=== PATIENT | male | born 1975 | race African-American/Black ===

== ENCOUNTER 2023-07-17 07:50 | Outpatient (CLI) | payer BC | END 2023-07-17 07:51 | disposition home or self-care (01) | LOC: CSHCT 07:50 | PROVIDERS: ATTEND Neurological Surgery | DX: M43.16 Spondylolisthesis, lumbar region (principal); M47.816 Spondylosis without myelopathy or radiculopathy, lumbar region; N13.30 Unspecified hydronephrosis; N20.0 Calculus of kidney | CPT/HCPCS: 72131 ==

== ENCOUNTER 2024-07-01 11:32 | Outpatient (CLI) | payer BC ==
[2024-07-01 12:42] LABS: #Basophils 0.05 10x3/uL (0.0-0.2); #Eosinophils 0.25 10x3/uL (0.0-0.5); #Monocytes 0.69 10x3/uL (0.0-1.1); %Basophils 0.6 % (0.0-2.0); %Eosinophils 3.2 % (0.0-6.0); %Lymphocytes 27.7 % (18.0-47.0); %Monocytes 8.7 % (0.0-10.0); %Neutrophils 59.4 % (40.0-75.0); Hematocrit 45.9 % (38.8-50.0); Hemoglobin 14.8 g/dL (13.5-17.5); Mean Corpuscular HGB CONC 32.2 g/dL (32.0-36.0); Mean Corpuscular Hemoglobin 28.8 pg (27.0-33.0); Mean Corpuscular Volume 89.5 fL (81.2-95.1); Mean Platelet Volume 9.3 fL (7.4-10.4); Platelet Count 260 10x3/uL (150-450); RBC Distribution Width 14.6 % (11.5-14.5); Red Blood Cell (RBC) Count 5.13 10x6/uL (4.32-5.72); White Blood Cell (WBC) Count 7.9 10x3/uL (3.5-10.5)
[2024-07-01 13:13] LABS: ALT (SGPT) 35 U/L (8-55); AST (SGOT) 28 U/L (5-34); Albumin 4.1 g/dL (3.5-5.0); Alkaline Phosphatase 87 U/L (40-110); Anion Gap 11 mmol/L (10-20); BUN (Urea Nitrogen) 11 mg/dL (8.9-20.6); Bilirubin, Direct 0.3 mg/dL (0.1-0.3); Bilirubin, Total 0.6 mg/dL (0.2-1.2); Calc. Creatinine Clearance 0 mL/min (70-130); Calcium 10.3 mg/dL (7.8-10.44); Carbon Dioxide 30 mmol/L (22-29); Chloride 102 mmol/L (98-107); Estimated GFR 74; Globulin 2.5 g/dL (2.4-3.5); Glucose 109 mg/dL (70-105); Potassium 4.8 mmol/L (3.5-5.1); Protein, Total 6.6 g/dL (6.0-8.3); Sodium 138 mmol/L (136-145)
== END 2024-07-01 11:33 | disposition home or self-care (01) ==
LOC: CSHLAB 11:32
PROVIDERS: ATTEND Surgery
DX: Z01.812 Encounter for preprocedural laboratory examination (principal); K81.1 Chronic cholecystitis; K82.4 Cholesterolosis of gallbladder
CPT/HCPCS: 80053; 80076; 85025

== ENCOUNTER 2024-07-04 05:52 | Day surgery (SDC) | payer BC ==
[2024-07-01 11:43] VITALS: BMI 26.4
[2024-07-04] MEDS ORDERED: Indocyanine Green 25 MG/10 ML VIAL ONE (07:05)
[2024-07-04] MEDS ORDERED: Bupivacaine/Epinephrine 0.25% 30 ML VIAL ONE (07:05)
[2024-07-04] MEDS ORDERED: PHENYLEPHRINE-NS 100 MCG/ML 10 ML SYRINGE ONE (07:12)
[2024-07-04] MEDS ORDERED: fentaNYL 50 mcg/mL 1 mL Vial ONE ×3 (07:12→09:55)
[2024-07-04] MEDS ORDERED: Ondansetron PF 4 MG/2 ML Vial ONE ×2 (07:12→09:17)
[2024-07-04] MEDS ORDERED: Rocuronium Bromide 10 MG/ML (10ML VIAL) ONE (07:12)
[2024-07-04] MEDS ORDERED: Dexamethasone 4 mg/ml Vial ONE ×2 (07:12→09:17)
[2024-07-04] MEDS ORDERED: Lidocaine 2% PF 5 ML VIAL ONE (07:12)
[2024-07-04] MEDS ORDERED: PROPOFOL 20 ML ONE (07:12)
[2024-07-04] MEDS ORDERED: HYDROmorphone 0.5 MG/0.5 ML SYRINGE ONE (07:14)
[2024-07-04] MEDS ORDERED: ceFOXitin 1 GM VIAL ONE (07:23)
[2024-07-04] MEDS ORDERED: SUGAMMADEX SODIUM 200 MG/2 ML VIAL ONE ×2 (08:07→09:48)
[2024-07-04] MEDS ORDERED: Ketorolac Tromethamine 30 MG (1 mL) VIAL ONE ×2 (08:08→09:17)
[2024-07-04] MEDS ORDERED: HYDROcodone/Acetaminophen 5/325 mg Tablet ONE (09:05)
[2024-07-04] MEDS ORDERED: Esmolol 100 MG/10 ML VIAL ONE (09:42)
== END 2024-07-04 09:37 | disposition home or self-care (01) ==
LOC: CSHSDC 05:52
PROVIDERS: ATTEND Surgery
PROC: 0FT44ZZ Resection of Gallbladder, Percutaneous Endoscopic Approach (ICD-10-PCS; principal; 2024-07-04)
DX: K81.1 Chronic cholecystitis (principal); I10 Essential (primary) hypertension; E78.5 Hyperlipidemia, unspecified; G47.33 Obstructive sleep apnea (adult) (pediatric); K21.9 Gastro-esophageal reflux disease without esophagitis; E11.9 Type 2 diabetes mellitus without complications; Z90.89 Acquired absence of other organs; Z98.890 Other specified postprocedural states; Z88.8 Allergy status to other drugs, medicaments and biological substances
CPT/HCPCS: 88304; C1889; J0694; J1100; J1885; J2405; J2704; J3010; S2900